=== PATIENT | female | born 1950 | race Caucasian/White ===

== ENCOUNTER → 2021-10-30 14:04 | Outpatient (CLI) | payer MEDICARE, OTHER, SELFPAY ==
--- NOTE | 2021-10-30 14:09 | DI.MG.S_ITS ---
BILATERAL DIGITAL SCREENING MAMMOGRAM 3D/2D WITH CAD: 10/30/2021 CLINICAL: Routine screening. Comparison is made to exams dated: 06/25/2020 mammogram, 06/30/2019 mammogram, and 05/02/2018 mammogram - outside location. There are scattered fibroglandular elements in both breasts. Current study was also evaluated with a Computer Aided Detection (CAD) system. There is a biopsy clip in the left breast. No significant masses, calcifications, or other findings are seen in either breast. There has been no significant interval change. IMPRESSION: NEGATIVE There is no mammographic evidence of malignancy. A 1 year screening mammogram is recommended. This exam was interpreted at Station ID: [id number]. NOTE: For mammograms, a report in lay terms will be sent to the patient. Approximately 15% of breast malignancies will not be visualized mammographically. In the management of a palpable breast mass, a negative mammogram must not discourage biopsy of a clinically suspicious lesion. Electronically Signed By: Aquilino saba/josefa:10/30/2021 16:06:34 letter sent: Normal Exam ACR BI-RADS Category 1: Negative [id number]
== END ==
PROVIDERS: Referring Provider Student in an Organized Health Care Education/Training Program; Visit Provider Student in an Organized Health Care Education/Training Program
DX: M85.851 Other specified disorders of bone density and structure, right thigh (principal); Z12.31 Encounter for screening mammogram for malignant neoplasm of breast; Z13.820 Encounter for screening for osteoporosis; Z78.0 Asymptomatic menopausal state
CPT/HCPCS: 77063; 77067; 77080; 77081

== ENCOUNTER → 2022-01-20 11:21 | Outpatient (CLI) | payer MEDICARE, OTHER, SELFPAY ==
--- NOTE | 2022-01-20 11:23 | DI.RAD.S_ITS ---
PROCEDURE: XR LUMBAR SPINE MIN 4V INDICATIONS: BACK PAIN.. TECHNIQUE: 5 views of the lumbar spine were acquired, including bilateral oblique views. COMPARISON: None. FINDINGS: Bones: Five nonrib-bearing vertebrae are present. Mild dextro rotoscoliosis of the lumbar spine with the apex at the L2 level. Grade 1 anterolisthesis L4 on five. Mild disc height loss L3-4 and L4-5. No vertebral body compression fractures. No suspicious bony lesions. Left hip arthroplasty component. Soft tissues: Overlying bowel gas pattern is normal. No suspicious soft tissue calcifications. Mild aortic atherosclerosis. Oblique images: Suboptimal given pre-existing rotoscoliosis. Prominent right L4-5 facet arthropathy. IMPRESSION: 1. Pre-existing mild rotational scoliosis of the lumbar spine. 2. L4-5 grade 1 anterolisthesis. Dictated by: Ce Márquez M.D. on 01/20/2022 at 14:47 Approved by: Ce Márquez M.D. on 01/20/2022 at 14:50
== END ==
PROVIDERS: PCP Student in an Organized Health Care Education/Training Program; Referring Provider Physical Medicine & Rehabilitation; Visit Provider Physical Medicine & Rehabilitation
DX: M43.16 Spondylolisthesis, lumbar region (principal); M41.86 Other forms of scoliosis, lumbar region; M54.9 Dorsalgia, unspecified
CPT/HCPCS: 72110

== ENCOUNTER → 2022-01-28 10:42 | Outpatient (CLI) | payer MEDICARE, OTHER, SELFPAY ==
[2022-01-28 14:16] LABS: COVID19 -Nasal RAPID Negative (Negative)
== END ==
PROVIDERS: PCP Student in an Organized Health Care Education/Training Program; Visit Provider Family Medicine Sleep Medicine
DX: Z20.822 Contact with and (suspected) exposure to COVID-19 (principal)
CPT/HCPCS: 87635; C9803

== ENCOUNTER 2022-01-30 13:52 | Day surgery (SDC) | payer MEDICARE, OTHER, SELFPAY ==
--- NOTE | 2022-01-30 | PATH_ITS ---
[facility] Accession Number: [id number] . 01 Material submitted: . PART A: sigmoid colon - SIGMOID COLON POLYP 4MM PART B: sigmoid colon - SIGMOID POLYP . 01 Clinical history: . B: LARGE SESSILE SIGMOID COLON POLYP, 2.5CM TARGET BIOPSY DONE . 02 Diagnosis: A. Sigmoid Colon Polyp 4 mm: Hyperplastic polyp. . B. Sigmoid Polyp: Multiple (approximately five) portions of tubular adenoma. MRV 02/05/2022 1107 Local . 02 Electronically signed: . Radha Butler MD, Pathologist NPI- [id number] . 01 Gross description: . Part A: SIGMOID COLON POLYP 4MM: Received in formalin is 1 fragment(s) of gardner, soft tissue measuring 0.3 x 0.2 x 0.2 cm submitted entirely in 1 cassette(s) Part B: SIGMOID POLYP: Received in formalin are 4 fragment(s) of gardner, soft tissue measuring 0.2 x 0.2 x 0.2 cm to 0.3 x 0.3 x 0.2 cm submitted entirely in 1 cassette(s) /PRASAD 02/02/2022 1858 Local . 02 Pathologist provided ICD-10: Z12.11, K63.5 . 02 CPT . 431648, 571754 Specimen Comment: A courtesy copy of this report has been sent to [phone] Performed at: 01 [facility] [address] [facility], [place], [place] [id number] MD David Dominguez MD Phone: [phone] Performed at: [address] [facility] [address] , [place], [place] [id number] MD Bettina Gee MD Phone: [phone]
--- NOTE | 2022-01-30 12:39 | P.HP_ITS ---
History of Present Illness History of Present Illness Date Patient Seen: 01/30/22 Chief complaint: SDC Narrative: 71 year old female comes in today for consideration of a screening colonoscopy. Last colonoscopy in 2017, 2 tubular adenomas, recall 5 years. There have been no lower GI symptoms suggesting disease such as change in bowel habits, bleeding, abdominal pain or anemia. She does have a family history of colon cancer. Overall health issues have been stable, including no major cardiac events for at least 6 weeks. PCP: Dr. 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 Met in the 7th grade, x 50 years. from cancer 3 years ago. Was having trouble maintaining their property with acreage in [place] so sold house and moved into an apartment and reflected on what she wanted to do with her life and what really makes her happy. Decied to move to [place], now living in [id number] apartment near her daughter. Tries to look at things on positive side. Interested in doing some volunteer work in [employer] and joining a gym. Believes in giving things to others, paying it forward. Enjoys: reading history, walking, swimming. Joined a group of 50+ women in [employer] called [employer]. Patient History Medical History Hypercholesteremia IBS (irritable bowel syndrome) Lumbar radiculopathy Osteoporosis Surgical History H/O breast surgery History of eye surgery History of foot surgery History of hip surgery History of total left hip arthroplasty Family & Social History Family History Father Depression Alcoholic Mother Diabetes mellitus Hypertension Heart attack Brother Cancer Sister Rheumatoid arteritis Fall Meds Home Medications and Allergies Home Medications Medication Instructions Recorded Confirmed Type alendronate 70 mg tablet 70 mg PO WEEKLY 01/26/22 01/30/22 History cholecalciferol (vitamin D3) 125 125 mcg PO DAILY 01/26/22 01/30/22 History mcg (5,000 unit) capsule colestipol 1 gram tablet (Colestid) 1 g PO BID 01/26/22 01/30/22 History hydroxyzine HCl 10 mg tablet 10 mg PO DAILY tab 01/26/22 01/30/22 History latanoprost 0.005 % eye drops 1 drp EYE-BOTH DAILY ml 01/26/22 01/30/22 History lovastatin 40 mg tablet 40 mg PO BEDTIME tab 01/26/22 01/30/22 History naproxen 500 mg tablet 500 mg PO BID PRN 01/26/22 01/30/22 History oxybutynin chloride 10 mg 10 mg PO DAILY 01/26/22 01/30/22 History tablet,extended release 24 hr Allergies Allergy/AdvReac Type Severity Reaction Status Date / Time oxycodone Allergy Intermediate Nausea Verified 01/30/22 14:21 Review of Systems Review of Systems Narrative: All remaining ROS were reviewed and negative except as addressed. Exam Narrative Exam Narrative: GENERAL: Alert and oriented, appearing stated age and in no acute distress. HEENT: Head normocephalic/atraumatic. Extraocular movements intact. LUNGS: Clear to ausculation bilaterally, no wheezes, rhonchi or rales. CV: Normal S1 and S2 with regular rate and rhythm, no audible murmurs, rubs or gallops. ABDOMEN: Soft, non-tender, non-distended, no organomegaly. Positive bowel sounds. EXTREMITIES: No clubbing, cyanosis, or edema. NEURO: Cranial nerves II through XII grossly intact, no focal deficits. PSYCH: Alert and oriented x 3. SKIN: No concerning lesions. Assessment & Plan Assessment & Plan narrative: 1. History of colon polyps 2. Family history of colon cancer 3. Screening for colon cancer Plan for colonoscopy. The nature and character of the procedure as well as anticipated results were discussed. The possibility of not completing the procedure was also discussed. Possible complications including aspiration pneumonia, bleeding, perforation and reaction to medications either for sedation or preparation and missed lesions were discussed. Questions were answered and proceeding to the colonoscopy was elected. Informed consent signed. I sincerely appreciate the referral allowing me to participate in this patient's care. Please contact me with any questions or concerns.
--- NOTE | 2022-01-30 12:43 | P.OP.COLON_ITS ---
Operative Date/Time/Diagnoses Date of procedure: 01/30/22 Procedure Notes SCOAP/Timeout: 1:24 p.m. Procedure in detail: ENDOSCOPIST: Anabelle Campoverde MD Sedation RN: Rose Marie Huston RN Sedation start time: 3:25 p.m. Sedation end time: 3:50 p.m. PROCEDURE: Colonoscopy with cold biopsy INDICATIONS: 1. History of colon polyps 2. Screening for cancer MEDICATION: Levsin 0.125 mg sublingual, incremental doses of Versed and fentanyl until appropriate level sedation achieved. ASA CLASS: 2 CECAL WITHDRAWAL TIME: 21 minutes COMPLICATIONS: None. EXTENT OF PROCEDURE: Cecum. QUALITY OF PREP: Good with portions of liquid stool. PROCEDURE: Prior to insertion of the colonoscope, a digital rectal examination was accomplished with circumferential palpation of the distal rectal mucosa without significant findings being noted. The high-definition colonoscope was passed into the rectum in the usual fashion and advanced over to the cecum without difficulty. The ileocecal valve, appendiceal stoma, and medial wall all could be inspected and no abnormalities were seen. ASCENDING COLON: As the colonoscope was withdrawn, care was taken to expose and inspect the haustral folds and no abnormalities were seen. HEPATIC FLEXURE: Normal, no polyps, diverticula or other abnormalities. TRANSVERSE COLON: Normal, no polyps, diverticula or other abnormalities. DESCENDING COLON: Minor diverticulosis, otherwise normal no polyps, or other a bnormalities. SIGMOID COLON: 2 polyps seen, the first was 4 mm and removed with cold biopsy, excellent hemostasis. The other was located distally, at approximately 10 cm, estimated size 2.5 cm, sessile. Polyp was lifted with methylene blue and noted to be spreading, targeted biopsy taken x2. Otherwise, minor diverticulosis no other abnormalities. RECTUM: Normal. J maneuver was produced. There was no significant perianal disease. The J maneuver was broken. The remainder of the rectum was inspected and there was no external hemorrhoid disease. The scope was withdrawn. IMPRESSION: 1. Sigmoid polyp x1, 4 mm, removed with cold biopsy forceps 2. Sigmoid polyp x1, 2.5 cm, lifted with methylene blue, targeted biopsy taken x2, polyp left unresected secondary to size. 3. Left-sided diverticulosis, minor PLAN: 1. Follow-up in clinic status post pathology results. 2. Referral to GI for advanced EMR of large, sessile polyp. The possibility of a missed lesion including a malignancy has been discussed with the patient previously. Potential alarm symptoms have been discussed and should be reported immediately.
[2022-01-30 14:20] VITALS: BP 153/82; PULSE 75; RESP 16; TEMP 37.1; O2SAT 100
[2022-01-30] MEDS: LACTATED RINGERS 1,000 ML 200 ML IV (14:27)
[2022-01-30] MEDS: HYOSCYAMINE 0.125 MG TABLET PO (14:27)
[2022-01-30 14:29] VITALS: BMI 32.1
[2022-01-30] MEDS: METHYLENE BLUE 50 MG/10 ML VIAL INJ (15:48)
[2022-01-30] MEDS: fentaNYL 250 MCG/5 ML INJ 125 MCG IV (15:50)
[2022-01-30] MEDS: MIDAZOLAM 5 MG/5 ML VIAL 6 MG IV (15:50)
[2022-01-30 16:06] VITALS: BP 134/70; PULSE 74; RESP 20; TEMP 35.9; O2SAT 97
[2022-01-30 16:11] VITALS: BP 124/66; PULSE 60; RESP 14; RESP 17; TEMP 35.8; O2SAT 97; O2SAT 99
[2022-01-30 16:22] VITALS: BP 137/64; PULSE 63; RESP 13; TEMP 35.8; O2SAT 97
[2022-01-30 16:27] VITALS: BP 145/65; PULSE 55; RESP 14; TEMP 35.9
== END 2022-01-30 16:51 | disposition home or self-care (01) ==
PROVIDERS: PCP Student in an Organized Health Care Education/Training Program; Referring Provider Student in an Organized Health Care Education/Training Program; Visit Provider Student in an Organized Health Care Education/Training Program
PROC: 0DJD8ZZ Inspection of Lower Intestinal Tract, Via Natural or Artificial Opening Endoscopic (ICD-10-PCS; CPT 45378; principal; 2022-01-30 15:15)
DX: Z12.11 Encounter for screening for malignant neoplasm of colon (principal); Z86.010 Personal history of colon polyps; K57.30 Diverticulosis of large intestine without perforation or abscess without bleeding; D12.5 Benign neoplasm of sigmoid colon
CPT/HCPCS: 45380; 45381; J2250; J3010; Q9968

== ENCOUNTER → 2022-02-05 08:56 | Outpatient (CLI) | payer MEDICARE, OTHER, SELFPAY ==
--- NOTE | 2022-02-05 08:58 | DI.MRI.S_ITS ---
PROCEDURE: MR LUMBAR SPINE WO CON INDICATIONS: Lumbar radiculopathy TECHNIQUE: Noncontrast sagittal T1 spin echo and T2 fast echo, sagittal STIR, and T2 fast spin echo through the lumbar spine. Additional oblique axial T2 weighted images were obtained through the lower lumbar spine. In cases with scoliosis, additional coronal T2 fast spin echo may be performed. COMPARISON: [facility], CR, XR LUMBAR SPINE MIN 4V, 01/20/2022, 11:25. FINDINGS: Image quality: Excellent. Alignment and Curvature: Minimal anterolisthesis is seen at T12-L1. Mild grade 1 anterolisthesis is seen at the L4-L5 level. Bone Marrow: Marrow is of normal overall signal. No acute vertebral body compression fractures. Spinal Cord: Conus medullaris terminates at the L1 level. Visualized cord demonstrates normal signal and size. Paraspinous Soft Tissues: No paravertebral masses. T12-L1: The disc height is well-preserved. Loss of disc signal is seen at this level. There is a focal annular fissure seen posteriorly. Reactive marrow endplate changes are seen, which are hyperintense on T1-weighted and T2-weighted imaging and most consistent with fatty metaplasia (Modic type II changes). Mild generalized disc bulge is seen. L1-L2: The disc height is well-preserved. Loss of disc signal is seen at this level. There is a focal annular fissure seen posteriorly. No significant neural foraminal or central canal narrowing can be seen. L2-L3: The disc height is well-preserved. Loss of disc signal is seen at this level. Mild generalized disc bulge is seen. Mild facet joint hypertrophy is seen. Minimal bilateral neural foraminal narrowing can be seen. No central canal narrowing is seen. L3-L4: Mild loss of disc height is seen. Loss of disc signal is seen. Mild generalized disc bulge is seen. Mild to moderate facet hypertrophy is seen. There is at least moderate right-sided and minimal left-sided neural foraminal narrowing. No significant central canal narrowing is seen. L4-L5: Mild loss of disc height is seen. Loss of disc signal is seen. Mild to moderate disc bulge is seen. There is a mild central disc extrusion, with mild superior migration of the disc material, as on series 2, image 8. At least moderate facet hypertrophy is seen. There is at least moderate bilateral neural foraminal narrowing seen. Moderate central canal narrowing is seen. L5-S1: Mild loss of disc height is seen. Loss of disc signal is seen. Mild generalized disc bulge is seen. Mild facet joint hypertrophy is seen. No significant neural foraminal or central canal narrowing can be seen. IMPRESSION: Multiple levels of lumbar spine degenerative change are seen, which are overall worst at the L4-L5 level. Dictated by: Thom Mauro M.D. on 02/05/2022 at 9:27 Approved by: Thom Mauro M.D. on 02/05/2022 at 9:32
== END ==
PROVIDERS: PCP Student in an Organized Health Care Education/Training Program; Referring Provider Physical Medicine & Rehabilitation; Visit Provider Physical Medicine & Rehabilitation
DX: M47.26 Other spondylosis with radiculopathy, lumbar region; M47.27 Other spondylosis with radiculopathy, lumbosacral region
CPT/HCPCS: 72148

== ENCOUNTER → 2022-05-19 08:58 | Outpatient (CLI) | payer MEDICARE, OTHER, SELFPAY ==
[2022-05-19 10:21] LABS: COVID19 -Nasal RAPID Negative (Negative)
== END ==
PROVIDERS: PCP Student in an Organized Health Care Education/Training Program; Visit Provider Surgery
DX: Z20.822 Contact with and (suspected) exposure to COVID-19 (principal); Z01.812 Encounter for preprocedural laboratory examination
CPT/HCPCS: 87635; C9803

== ENCOUNTER 2022-05-20 14:55 | Day surgery (SDC) | payer MEDICARE, OTHER, SELFPAY ==
--- NOTE | 2022-05-20 14:54 | PM.PREOP ---
Pre-operative Note COVID-19 COVID-19 status: Negative Interval Note History & Physical reviewed/Exam performed by Physician: Yes Changes to H&P: No ASA Class (for procedural sedation): II
--- NOTE | 2022-05-20 14:55 | PM.OP.EGD ---
Operative Date/Time/Diagnoses Date of procedure: 05/20/22 Pre-op diagnosis: See indication and findings Procedure & Clinicians Study performed: EGD and dilation Indications: Dysphagia Surgeon: Sri Ovalle Procedure Notes Procedure in detail: After informed consent was obtained patient was placed in left lateral decubitus position. The video upper scope was placed into the oropharynx and with the patient's help swallowed into the esophagus. The esophagus stomach duodenum were carefully examined. On withdrawal, retroflexed view the GE junction was performed. The scope was removed. The patient tolerated procedure well. Blood loss none Complications none Sedation mac Findings 1. No evidence of a proximal or distal web or ring. If anything there were some tertiary contractions noted in the esophagus. GE junction was wide open. At the end of the procedure a guidewire was left in place and a 51 [place] Savary was passed. There were no complications 2. Normal stomach 3. Normal duodenal bulb and sweep We will see whether daily gets any relief from this procedure but I doubt she will have anything long lasting. If further workup is desired regarding the etiology of her dysphagia a esophageal manometry might be considered. She should follow up with Dr. Nolen when after having the colonoscopy later this month.
[2022-05-20 15:09] VITALS: BMI 31.8
[2022-05-20] MEDS: LACTATED RINGERS 1,000 ML 42 ML IV (15:14)
[2022-05-20 15:16] VITALS: BP 162/78; PULSE 72; RESP 12; TEMP 36.4; O2SAT 96
[2022-05-20 15:40] VITALS: BP 112/64; PULSE 69; RESP 20; TEMP 36; O2SAT 96
[2022-05-20 15:45] VITALS: BP 130/67; PULSE 56; RESP 15; O2SAT 95
[2022-05-20 15:50] VITALS: BP 122/64; PULSE 56; RESP 12; O2SAT 96
[2022-05-20 15:55] VITALS: BP 138/67; PULSE 51; RESP 14; O2SAT 95
[2022-05-20 15:57] VITALS: BP 133/69; PULSE 51; RESP 17; O2SAT 98
== END 2022-05-20 16:20 | disposition home or self-care (01) ==
PROVIDERS: PCP Student in an Organized Health Care Education/Training Program; Referring Provider Internal Medicine Gastroenterology; Visit Provider Internal Medicine Gastroenterology
PROC: 0DJ08ZZ Inspection of Upper Intestinal Tract, Via Natural or Artificial Opening Endoscopic (ICD-10-PCS; CPT 43235; principal; 2022-05-20 15:00)
DX: R13.10 Dysphagia, unspecified (principal)
CPT/HCPCS: 43248; J2704

== ENCOUNTER → 2022-06-19 09:06 | Outpatient (CLI) | payer MEDICARE, OTHER, SELFPAY ==
[2022-06-19 10:30] LABS: COVID19 -Nasal RAPID Negative (Negative)
== END ==
PROVIDERS: PCP Student in an Organized Health Care Education/Training Program; Visit Provider Surgery
DX: Z01.812 Encounter for preprocedural laboratory examination (principal); Z20.822 Contact with and (suspected) exposure to COVID-19
CPT/HCPCS: 87635; C9803

== ENCOUNTER 2022-06-22 10:32 | Day surgery (SDC) | payer MEDICARE, OTHER, SELFPAY ==
--- NOTE | 2022-06-22 | PATH_ITS ---
[facility] Accession Number: [id number] . 01 Material submitted: . colon - RECTAL-SIGMOID POLYP @10CM . 01 Clinical history: . [facility] PERSONAL HISTORY OF COLONIC POLYPS . 01 Diagnosis: Rectosigmoid Colon Polyp at 10 cm, Biopsy: Tubulovillous adenoma. Negative for high-grade dysplasia or malignancy. MRV 06/26/2022 1220 Local . 01 Electronically signed: . Jonas Linder MD, PhD, Pathologist NPI- [id number] . 01 Gross description: . RECTAL-SIGMOID POLYP @10CM: Received in formalin are 3 fragment(s) of gardner, soft tissue measuring 0.4 x 0.2 x 0.1 cm to 0.3 x 0.2 x 0.1 cm submitted entirely in 1 cassette(s) /CPE 06/23/2022 0848 Local . 01 Pathologist provided ICD-10: D12.7 . 01 CPT . 694596 Performed at: 01 [facility] [address] [place] [address], [place], [place] [id number] MD David Dominguez MD Phone: [phone]
[2022-06-22 12:45] VITALS: BP 142/69; PULSE 57; RESP 20; TEMP 36.2; O2SAT 97; BMI 32.1
[2022-06-22] MEDS: SODIUM CHLORIDE 0.9% 1,000 ML 100 ML IV (13:00)
--- NOTE | 2022-06-22 13:45 | PM.HP.1 ---
History of Present Illness History of Present Illness Date Patient Seen: 06/22/22 Time Patient Seen: 13:45 Chief complaint: SDC Narrative: I reviewed my office note from April 28. No changes. Patient History Medical History Facet arthropathy, lumbar Hypercholesteremia IBS (irritable bowel syndrome) Lumbar radiculopathy Osteoporosis Surgical History H/O breast surgery History of eye surgery History of foot surgery History of hip surgery History of total left hip arthroplasty Family & Social History Family History Father Depression Alcoholic Mother Diabetes mellitus Hypertension Heart attack Brother Cancer Sister Rheumatoid arteritis Fall Social History: household members none Tobacco & Substance use: Smoking Status Former smoker alcohol intake current alcohol intake frequency a few times a month Substance Use Type does not use Meds Home Medications and Allergies Home Medications Medication Instructions Recorded Confirmed Type alendronate 70 mg tablet 70 mg PO WEEKLY 01/26/22 06/22/22 History cholecalciferol (vitamin D3) 125 125 mcg PO DAILY 01/26/22 06/22/22 History mcg (5,000 unit) capsule colestipol 1 gram tablet (Colestid) 1 g PO BID 01/26/22 06/22/22 History hydroxyzine HCl 10 mg tablet 10 mg PO DAILY 01/26/22 06/22/22 History latanoprost 0.005 % eye drops 1 drp EYE-BOTH DAILY 01/26/22 06/13/22 History lovastatin 40 mg tablet 40 mg PO BEDTIME 01/26/22 06/22/22 History naproxen 500 mg tablet 500 mg PO BID PRN pain 01/26/22 06/22/22 History oxybutynin chloride 10 mg 10 mg PO DAILY 01/26/22 06/22/22 History tablet,extended release 24 hr Allergies Allergy/AdvReac Type Severity Reaction Status Date / Time oxycodone Allergy Intermediate Hallucinati Verified 06/13/22 12:29 ng Review of Systems Review of Systems ROS: Yes All systems reviewed with the patient and are negative except as otherwise documented Exam Vital Signs (past 8 hours): - 06/22/22 12:45 Temperature 97.2 F L Pulse Rate 57 L Respiratory Rate 20 Blood Pressure 142/69 H Pulse Oximetry 97 Oxygen Delivery Method Room Air Oxygen Delivery Method Room Air Const General: cooperative HENMT Head: normal to inspection Eyes General: appearance normal, both eyes and all related structures Neck Neck: normal visual inspection Chest Chest: normal inspection of the chest Resp Effort & Inspection: normal respiratory effort Cardio Rate: regular rate GI Inspection: normal to inspection Skin General: no rashes or lesions noted Neuro General: patient alert and patient awake Extrem General: normal to inspection and no pedal edema Psych Appearance: grossly normal Assessment & Plan Assessment & Plan narrative: 71-year-old female with a large adenomatous colon polyp. Repeat colonoscopy is pursued today. Time Spent With Patient Critical Care time: I spent a total of [] minutes of critical care time on this patient's care today; this time is exclusive of procedural time.
--- NOTE | 2022-06-22 15:22 | P.OP.COLON_ITS ---
Operative Date/Time/Diagnoses Date of procedure: 06/22/22 Time of procedure: 15:24 Pre-op diagnosis: Distal sigmoid polyp Post-op diagnosis: same Procedure & Clinicians Study performed: Colonoscopy with biopsy and Cristina ink submucosal injection Same procedure as scheduled: Yes Indications: Sigmoid tubular adenoma Surgeon: Rufino London Procedure Notes SCOAP/Timeout: Done Procedure in detail: After the risks and benefits were explained, written and verbal informed consent was obtained. The patient was brought into the procedure room and placed into the left lateral decubitus position. Please see nurse manager assessment notes for sedation details. Digital rectal examination was accomplished. The scope was introduced into the patient and advanced under direct visualization to approximately hepatic flexure. We discontinued efforts toward cecum in that this has already been accomplished recently and the patient was simply not tolerating the exam without considerable retching at that point. Any attempt at placing hands on the abdomen for pressure seemed to induce retching. The scope was slowly withdrawn to carefully examine the mucosa for any defects or lesions. Comprehensive imaging was accomplished throughout the rectum including the dentate line. The colon was decompressed, the scope was then removed from the patient who tolerated the procedure suboptimally Bowel prep adequate Pediatric colonoscope Scope withdrawal time: Not applicable Sedation minutes: 34 Complications: none Impression: Patient demonstrated suboptimal tolerance of the exam as described above. There was a large multilobulated polyp at approximately 10 cm from the anal verge. There were elements of this polyp that had sessile heaped up borders and irregular depressed features quite concerning for more advanced histology maybe even cancer at this point. There were other elements of the polyp that were more classically polypoid. I opened the 24 mm snare in the polyps suspect that the polyp was perhaps 2-1/2 cm in greatest dimension. Because of the morphology of this polyp I was quite concerned for some form of an invasive histology and elected only to pursue biopsies once again. We placed a small tattoo adjacent the lesion and photographed it once again to reveal where the tattoo is in re lation to the lesion. Endoscopic diagnosis Large irregular rectosigmoid junction polyp Post-procedure Plan for aftercare: 1. Await histopathology 2. Urgent EUS if histology continues to demonstrate benignity. I think this will be important to determine whether this polyp can indeed endoscopically be removed. 3. On the other hand if biopsies are concerning for advanced dysplasia carcinoma in Situ etc. then I think surgical consultation will be required. Disposition: PACU
[2022-06-22 15:27] VITALS: BP 118/73; PULSE 71; RESP 18; TEMP 36.3; O2SAT 97
[2022-06-22 15:32] VITALS: BP 116/73; PULSE 61; RESP 16; O2SAT 98
[2022-06-22 15:38] VITALS: BP 129/72; PULSE 61; RESP 18; O2SAT 97
--- NOTE | 2022-06-22 15:38 | SUR.PHASEI ---
Dr. Chung into see pt and talk to her regarding her polyp removal. Pt states she understands what he is telling her.
[2022-06-22 15:42] VITALS: BP 154/87; PULSE 59; RESP 16; TEMP 36.4; O2SAT 95
[2022-06-22 16:47] VITALS: BP 156/71; PULSE 56; RESP 16; TEMP 36.7; O2SAT 100
== END 2022-06-22 16:05 | disposition home or self-care (01) ==
PROVIDERS: PCP Student in an Organized Health Care Education/Training Program; Referring Provider Internal Medicine Gastroenterology; Visit Provider Internal Medicine Gastroenterology
PROC: 0DJD8ZZ Inspection of Lower Intestinal Tract, Via Natural or Artificial Opening Endoscopic (ICD-10-PCS; CPT 45378; principal; 2022-06-22 13:30)
DX: D12.7 Benign neoplasm of rectosigmoid junction (principal); Z86.010 Personal history of colon polyps
CPT/HCPCS: 45380; 45381; J2405; J2704

== ENCOUNTER → 2022-10-31 09:14 | Outpatient (CLI) | payer MEDICARE, OTHER, SELFPAY ==
--- NOTE | 2022-10-31 09:16 | DI.MG.S_ITS ---
BILATERAL DIGITAL SCREENING MAMMOGRAM 3D/2D WITH CAD: 10/31/2022 CLINICAL: Routine screening. Comparison is made to exams dated: 10/30/2021 mammogram - [facility], 06/25/2020 mammogram, and 06/30/2019 mammogram - outside location. There are scattered areas of fibroglandular density in both breasts (category b / 25%-50% glandular tissue). Current study was also evaluated with a Computer Aided Detection (CAD) system. There are benign calcifications in both breasts. There also is a biopsy clip in the left breast. No significant masses, calcifications, or other findings are seen in either breast. There has been no significant interval change. IMPRESSION: BENIGN There is no mammographic evidence of malignancy. A 1 year screening mammogram is recommended. Based on the Tyrer Cuzick model (a risk assessment model) the patient's lifetime risk is 2.7% and her 10 year risk is 2.4%. According to the ACR, ACS, and NCCN guidelines, an annual breast MRI exam along with mammogram is recommended if the patient's lifetime risk is 20% or greater. This exam was interpreted at Station ID: [id number]. NOTE: For mammograms, a report in lay terms will be sent to the patient. Approximately 15% of breast malignancies will not be visualized mammographically. In the management of a palpable breast mass, a negative mammogram must not discourage biopsy of a clinically suspicious lesion. Electronically Signed By: David montalvo/josefa:11/02/2022 02:07:49 letter sent: Normal Exam ACR BI-RADS Category 2: Benign Finding(s) 3342F
== END ==
PROVIDERS: PCP Family Medicine; Referring Provider Family Medicine; Visit Provider Family Medicine
DX: Z12.31 Encounter for screening mammogram for malignant neoplasm of breast (principal)
CPT/HCPCS: 77063; 77067

== ENCOUNTER 2022-11-05 07:14 | Outpatient (CLI) | payer MEDICARE, OTHER, SELFPAY ==
[2022-11-05] VITALS (8 sets, daily range): BP systolic 108–171; BP diastolic 58–77; PULSE 67–80; RESP 17–20; TEMP 36.6; O2SAT 96–97
--- NOTE | 2022-11-05 07:17 | DI.RAD.S_ITS ---
PROCEDURE: PAIN L INTERLAMINAR/CAUDAL INJ INDICATIONS: SPONDYLOSIS COMPARISON: [facility], CR, XR LUMBAR SPINE MIN 4V, 01/20/2022, 11:25. [facility], MR, MR LUMBAR SPINE WO CON, 02/05/2022, 9:05. FINDINGS: Fluoroscopic spot filming was performed to verify placement of a spinal needle at the L4-L5 level, as labeled on the films. Appropriate location of the needle tip was confirmed by injection of iodinated contrast. IMPRESSION: Intraprocedural examination within normal limits. Dictated by: Thom Mauro M.D. on 11/05/2022 at 11:10 Approved by: Thom Mauro M.D. on 11/05/2022 at 11:11
[2022-11-05] MEDS: MIDAZOLAM 2 MG/2 ML VIAL IV (08:30)
[2022-11-05] MEDS: BETAMETHASONE 30 MG/5 ML MDV 6 MG INJ (08:36)
[2022-11-05] MEDS: DEXAMETHASONE 10 MG/ML VIAL 20 MG INJ (08:37)
[2022-11-05] MEDS: IOPAMIDOL 15 ML VIAL 3 ML INJ (08:37)
[2022-11-05] MEDS: BUPIVACAINE 0.25% (PF) VIAL 2 ML INJ (08:38)
--- NOTE | 2022-11-05 08:44 | P.PCN_ITS ---
Date/Time/Diagnoses Date of procedure: 11/05/22 Time of procedure: 08:44 Pre-procedure diagnosis: 1. HNP WITH RADICULAR FEATURES, 2. MULTILEVEL CENTRAL STENOSIS, Post-procedure diagnosis: same Procedure Notes Procedure: 1. FLUOROSCOPICALLY GUIDED CONTRAST CONTROLLED INTERLAMINAR EPIDURAL STEROID INJECTION -L4/5 Indications: Ramesh is referred by Dr. Bear for treatment of Bilateral Foraminal Stenosis R>L LE symptoms. Physician: Tigre Walter Total Fluoroscopy time (seconds): 5 Total sedation minutes: 10 Complications: none Procedure in detail & Post-procedure care: FINDINGS Multilevel Central Spinal Stenosis with Nerve Root Compression DESCRIPTION OF PROCEDURE Fluoroscopically guided, contrast-controlled L4/5 translaminar epidural steroid injection. Following review of allergy and review of potential side effects and complications, including, but not necessarily limited to, infection, allergic reaction, local tissue breakdown, temporary as well as permanent nerve injury, paralysis, stroke and possible , the patient indicated that the patient understood and agreed to proceed. An informed consent document was signed by the patient, witnessed by a nurse, and placed in the patient's chart. Additionally, other treatment options including modalities, medications, and physical therapy were reviewed with the patient. After review of previous anaesthesic history and IV conscious sedation the patient was deemed safe to proceed with today?s procedure with IV conscious sedation as ASA class II designation. Safety time-out was performed to confirm patient ID, procedure to be performed and site of procedure. IV sedation was accomplished with a combination of 2mg of Versed was administered by the RN after DO order, titrated to patient comfort during the course of the procedure while the patient remained responsive to all verbal commands In the prone position, following sterile prep and drape of the lumbar region, the L4/5 translaminar space was identified fluoroscopically. The skin was anesthetized via a 25-gauge, 1.5inch needle with 1% lidocaine solution. At this point, a 22-gauge short bevel spinal needle was atraumatically introduced and a dvanced under fluoroscopic guidance into the region of the L4/5 translaminar space. Depth was confirmed on lateral view. Radiological data, including multiple fluoroscopic views of the lumbar spine, reveal a spinal needle at the L4/5 translaminar space. Lateral views then show placement of the needle in the epidural space. Subsequent views show contrast material flowing superiorly and inferiorly in the epidural space. No vascular or intrathecal uptake is observed. At this point, using loss of resistance technique with saline and air, the epidural space was entered. This was confirmed following negative aspiration with injection of approximately 1.5cc of Isovue 200, showing excellent epidural flow without vascular or intrathecal uptake. At this point, 1cc of 1% lidocaine solution combined with 3cc or 20mg of dexamethasone and 6mg betamethasone was injected without incident. The patient tolerated the procedure well without signs or symptoms of complications prior to transfer to the recovery area continued monitoring without incident. The patient was then transferred to the recovery area where they were observed for an appropriate period of time after the injection. The patient reported a VAS score of 6 prior to the procedure and a post- procedure VAS of 0. POST OP INSTRUCTIONS The patient was provided a Pain Log to continue to record their response to the target-specific procedure prior to follow-up visit with their referring physician. Additionally, specific post-injection care instructions and a contact number to our office were provided if concerns arise regarding possible complications associated with the procedure are suspected.
--- NOTE | 2022-11-05 09:07 | PC.NURSE ---
Patient with c/o headache. She reports I think its an oncoming cold and that it was present prior to her injection. 01/[address] Walter at bedside, assisted to recline patient fully and then sit her up. She reports complete improvement in headache while laying flat with it returning upon sitting up. Ok to discharge home per Dr. Walter. He instructed the patient to monitor at home and that he will call her later today to check up on her. She verbalized understanding again reporting she thinks its related to her new runny nose symptoms this AM.
== END 2022-11-05 09:09 | disposition home or self-care (01) ==
LOC: RAD 07:15
PROVIDERS: PCP Family Medicine; Referring Provider Physical Medicine & Rehabilitation; Visit Provider Physical Medicine & Rehabilitation
DX: M51.16 Intervertebral disc disorders with radiculopathy, lumbar region (principal); M48.061 Spinal stenosis, lumbar region without neurogenic claudication
CPT/HCPCS: 62323; 99152; J0702; J1100; J2250; J3490

== ENCOUNTER 2022-11-30 06:45 | Day surgery (SDC) | payer MEDICARE, OTHER, SELFPAY ==
--- NOTE | 2022-11-30 | PATH_ITS ---
[facility] Accession Number: [id number] No. of containers..02 Tissue . 01 Material submitted: . PART A: colon - RECTAL/SIGMOID POLYPECTOMY SITE PART B: rectum - RECTAL POLYP . 01 Diagnosis: A. Rectal/Sigmoid, Polypectomy Site: Colonic mucosa with no diagnostic abnormality. Negative for active, chronic, and microscopic colitis. Negative for dysplasia and malignancy. . B. Rectum, Polyp, Biopsy: Tubular adenoma. . MRV 12/02/2022 1525 Local . 01 Electronically signed: . Bettina Gee MD, Pathologist NPI- [id number] . 01 Gross description: . Part A: RECTAL/SIGMOID POLYPECTOMY SITE: Received in formalin are 4 fragment(s) of gardner, soft tissue measuring 0.2 x 0.1 x 0.1 cm to 0.2 x 0.1 x 0.1 cm submitted entirely in 1 cassette(s) Part B: RECTAL POLYP: Received in formalin is 1 fragment(s) of gardner, soft tissue measuring 0.2 x 0.1 x 0.1 cm submitted entirely in 1 cassette(s) /CPE 12/01/2022 0916 Local . 01 Pathologist provided ICD-10: D12.8 . 01 CPT . 517974, 335857 Specimen Comment: A courtesy copy of this report has been sent to [phone] Performed at: 01 [facility] [address] [place] [address], [place], [place] [id number] MD David Dominguez MD Phone: [phone]
[2022-11-30 07:28] VITALS: BP 140/72; PULSE 54; RESP 16; TEMP 37.1; O2SAT 99; BMI 31.8
[2022-11-30] MEDS: LACTATED RINGERS 1,000 ML 42 ML IV (07:38)
--- NOTE | 2022-11-30 07:50 | PM.HP.1 ---
History of Present Illness History of Present Illness Date Patient Seen: 11/30/22 Time Patient Seen: 08:00 Chief complaint: SDC Narrative: History of a large rectal tubulovillous adenoma. Here for inspection of prior polypectomy site Patient History Medical History Facet arthropathy, lumbar Hypercholesteremia IBS (irritable bowel syndrome) Lumbar radiculopathy Osteoporosis Surgical History H/O breast surgery History of eye surgery History of foot surgery History of hip surgery History of total left hip arthroplasty Family & Social History Family History Father Depression Alcoholic Mother Diabetes mellitus Hypertension Heart attack Brother Cancer Sister Rheumatoid arteritis Fall Social History: household members family,none Tobacco & Substance use: Tobacco type cigarettes Smoking Status Former smoker alcohol intake current alcohol intake frequency a few times a month Substance Use Type does not use Meds Home Medications and Allergies Home Medications Medication Instructions Recorded Confirmed Type cholecalciferol (vitamin D3) 125 125 mcg PO DAILY 01/26/22 11/30/22 History mcg (5,000 unit) capsule colestipol 1 gram tablet (Colestid) 1 g PO BID 01/26/22 11/30/22 History hydroxyzine HCl 10 mg tablet 10 mg PO DAILY 01/26/22 11/30/22 History latanoprost 0.005 % eye drops 1 drp EYE-BOTH DAILY 01/26/22 11/30/22 History lovastatin 40 mg tablet 40 mg PO BEDTIME 01/26/22 11/30/22 History naproxen 500 mg tablet 500 mg PO BID PRN pain 01/26/22 11/30/22 History oxybutynin chloride 10 mg 10 mg PO DAILY 01/26/22 11/30/22 History tablet,extended release 24 hr estradiol 0.01% (0.1 mg/gram) 1 g vaginal 2XW 11/02/22 11/30/22 History vaginal cream Allergies Allergy/AdvReac Type Severity Reaction Status Date / Time oxycodone Allergy Intermediate Hallucinati Verified 11/30/22 07:23 ng Review of Systems Review of Systems ROS: Yes All systems reviewed with the patient and are negative except as otherwise documented Exam Vital Signs (past 8 hours): - 11/30/22 07:28 Temperature 98.7 F Pulse Rate 54 L Respiratory Rate 16 Blood Pressure 140/72 Pulse Oximetry 99 Oxygen Delivery Method Room Air Oxygen Delivery Method Room Air Const General: cooperative HENMT Head: normal to inspection Eyes General: appearance normal, both eyes and all related structures Neck Neck: normal visual inspection Chest Chest: normal inspection of the chest Resp Effort & Inspection: normal respiratory effort Cardio Rate: regular rate GI Inspection: normal to inspection Skin General: no rashes or lesions noted Neuro General: patient alert and patient awake Extrem General: normal to inspection and no pedal edema Psych Appearance: grossly normal Assessment & Plan Assessment & Plan narrative: 72-year-old female with a history of large tubulovillous adenoma. Flexible sigmoidoscopy for surveillance is pursued today. Time Spent With Patient Critical Care time: I spent a total of [] minutes of critical care time on this patient's care today; this time is exclusive of procedural time.
--- NOTE | 2022-11-30 08:01 | PM.PREOP ---
Pre-operative Note Interval Note History & Physical reviewed/Exam performed by Physician: Yes Changes to H&P: No ASA Class (for procedural sedation): II
--- NOTE | 2022-11-30 08:21 | PM.OP.COLON ---
Operative Date/Time/Diagnoses Date of procedure: 11/30/22 Time of procedure: 08:22 Pre-op diagnosis: Large rectosigmoid tubulovillous adenoma Post-op diagnosis: same Procedure & Clinicians Study performed: Flexible sigmoidoscopy with biopsies and cold forceps polypectomy Same procedure as scheduled: Yes Indications: Large tubulovillous rectosigmoid adenoma Surgeon: Rufino London Procedure Notes SCOAP/Timeout: Done Procedure in detail: After the risks and benefits were explained, written and verbal informed consent was obtained. The patient was brought into the procedure room and placed into the left lateral decubitus position. Please see anesthesia notes for sedation details. Digital rectal examination was accomplished. The scope was introduced into the patient and advanced under direct visualization to approximately 40 cm from the anal verge. The scope was slowly withdrawn to carefully examine the mucosa for any defects or lesions. Comprehensive imaging was accomplished throughout the rectum including the dentate line. The colon was decompressed, the scope was then removed from the patient who tolerated the procedure well. Bowel prep adequate Adult colonoscope Scope withdrawal time: Not applicable Sedation minutes: 13 Complications: none Impression: There was a diminutive polyp in the rectum in a separate location from the previously resected large tubulovillous adenoma. This tiny polyp was removed with cold forceps. The site of the prior polypectomy was clearly identified by a slightly stellate scar. I elected to biopsy a small polypoid element associated with the scar that I suspect is hyperplastic and some of the surrounding mucosa to exclude any adenomatous features. The previously placed tattoo could easily be identified adjacent to this polypectomy site. Endoscopic diagnosis 1. Confirmation of prior complete polypectomy-status post biopsies 2. Diminutive rectal polyp Post-procedure Plan for aftercare: 1. Await histopathology. 2. If there are no concerning features identified at the polypectomy site biopsies, repeat colonoscopy will be suggested for 3 years. Disposition: PACU
[2022-11-30 08:23] VITALS: BP 118/57; PULSE 53; RESP 15; TEMP 36.7; O2SAT 94
[2022-11-30 08:28] VITALS: BP 127/62; PULSE 52; RESP 16; O2SAT 99
[2022-11-30 08:33] VITALS: BP 137/59; PULSE 50; RESP 16; TEMP 36.9; O2SAT 99
[2022-11-30 08:40] VITALS: BP 133/58; PULSE 50; RESP 16; TEMP 36.9; O2SAT 99
== END 2022-11-30 08:50 | disposition home or self-care (01) ==
PROVIDERS: PCP Family Medicine; Referring Provider Internal Medicine Gastroenterology; Visit Provider Internal Medicine Gastroenterology
PROC: 0DJD8ZZ Inspection of Lower Intestinal Tract, Via Natural or Artificial Opening Endoscopic (ICD-10-PCS; CPT 45378; principal; 2022-11-30 08:00)
DX: D12.7 Benign neoplasm of rectosigmoid junction (principal); Z09 Encounter for follow-up examination after completed treatment for conditions other than malignant neoplasm; D12.8 Benign neoplasm of rectum
CPT/HCPCS: 45331; J2704; J3010

== ENCOUNTER → 2023-08-10 08:08 | Outpatient (CLI) | payer MEDICARE, OTHER, SELFPAY | PROVIDERS: PCP Family Medicine; Referring Provider Podiatrist; Visit Provider Podiatrist | DX: Z01.818 Encounter for other preprocedural examination (principal) | CPT/HCPCS: 93005 ==

== ENCOUNTER → 2023-11-04 | Outpatient (CLI) | payer MEDICARE, OTHER, SELFPAY ==
--- NOTE | 2023-11-04 | DI.RAD.S_ITS ---
Bone Density Report Name: ARIA ELIZONDO Age: 73 Sex: Female Ethnicity: White Date of : 1950 Indication: osteopenia; prior fracture; Referring Provider: CECILIO UMANA Study: Bone densitometry was performed. Exam Date: November 04, 2023 Accession number: [id number] Bone Density: Region BMD T-score Z-score Classification AP Spine(L1-L4) 0.899 -1.3 1.1 Osteopenia Femoral Neck (Left) 2.151 11.7 13.8 Normal Total Hip (Left) 3.111 17.8 19.6 Normal Femoral Neck (Right) 0.611 -2.1 -0.1 Osteopenia Total Hip (Right) 0.754 -1.5 0.3 Osteopenia Total Hip Mean 1.933 8.2 10.0 Normal Total Forearm (Left) 0.471 -2.0 0.5 Osteopenia 1/3 Forearm (Left) 0.549 -2.4 0.2 Osteopenia UD Forearm (Left) 0.378 -1.1 0.7 Osteopenia World Health Organization criteria for BMD impression classify patients as: Normal (T-score at or above -1.0), Osteopenia (T-score between -1.0 and -2.5), or Osteoporosis (T-score at or below -2.5). 10-year Fracture Risk: FRAX not reported because: Prior hip or vertebral fracture Previous Exams: -- Region Exam Age BMD T-score BMD Change BMD Change Date g/cm2 vs Baseline vs Previous -- AP Spine (L1-L4) 11/04/2023 73 0.899 -1.3 -0.047 (-5.0%)# -0.047 (-5.0%)# 10/30/2021 71 0.946 -0.9 Total Hip(Right) 11/04/2023 73 0.754 -1.5 -0.003 (-0.4%)# -0.003 (-0.4%)# 10/30/2021 71 0.758 -1.5 -- *Denotes significance at 95% confidence level, LSC for AP Spine = 0.022 g/cm2, LSC for Total Hip = 0.027 g/cm2 # Denotes dissimilar scan types or analysis methods Impression: The patient has low bone mass, based on the Right Femoral Neck T-score. The patient has risk factors, including: previous fracture. No significant bone loss was observed. Discussion: INCREASED RISK OF FRACTURE DUE TO HISTORY OF FRACTURE. The patient's previous fracture puts the patient at high risk of a future fracture. In untreated patients, the risk of osteoporotic fracture increases approximately two-fold for each 1.0 SD decrease in T-score. Low bone density is not the only risk factor for fracture; also consider factors such as patient's age, frailty or poor health, risk of falling, risk of injury, previous osteoporotic fracture, family history of osteoporosis, cigarette smoking, low body weight, etc. Not everyone with a low trauma fracture has osteoporosis; osteomalacia and other metabolic bone disorders should also be considered. Patients who have osteoporosis should be evaluated for specific diseases and conditions (secondary causes) that may cause or contribute to bone loss and fracture risk. National Osteoporosis Foundation (NOF) recommends pharmacologic intervention for patients with a prior hip or vertebral fracture regardless of BMD T-score. The patient should follow a healthful lifestyle (good nutrition with adequate calcium and vitamin D, and appropriate weight-bearing exercise). Follow-Up: Consider a repeat BMD and Vertebral Fracture Assessment (VFA) exam in 2 years or sooner if medically necessary, to reassess this patient's status. Reported by: NAMAN MAX M.D. on 11/04/2023 12:25:00 PM.
== END ==
LOC: RAD 11:43
PROVIDERS: PCP Family Medicine; Referring Provider Family Medicine; Visit Provider Family Medicine
DX: M85.89 Other specified disorders of bone density and structure, multiple sites (principal)
CPT/HCPCS: 77080; 77081

== ENCOUNTER → 2023-11-11 16:18 | Outpatient (CLI) | payer MEDICARE, OTHER, SELFPAY ==
--- NOTE | 2023-11-11 | DI.MG.S_ITS ---
BILATERAL DIGITAL SCREENING MAMMOGRAM 3D/2D WITH CAD: 11/11/2023 CLINICAL: Routine screening. Comparison is made to exams dated: 10/31/2022 mammogram, 10/30/2021 mammogram - [facility], and 06/25/2020 mammogram - outside location. There are scattered areas of fibroglandular density in both breasts (category b / 25%-50% glandular tissue). Current study was also evaluated with a Computer Aided Detection (CAD) system. There is possible architectural distortion in the right breast at 12 o'clock anterior depth. No other significant masses, calcifications, or other findings are seen in either breast. IMPRESSION: INCOMPLETE: NEEDS ADDITIONAL IMAGING EVALUATION The possible architectural distortion in the right breast is indeterminate. Additional views with possible ultrasound are recommended. Based on the Tyrer Cuzick model (a risk assessment model) the patient's lifetime risk is 2.5% and her 10 year risk is 2.5%. According to the ACR, ACS, and NCCN guidelines, an annual breast MRI exam along with mammogram is recommended if the patient's lifetime risk is 20% or greater. This exam was interpreted at Station ID: [id number]. NOTE: For mammograms, a report in lay terms will be sent to the patient. Approximately 15% of breast malignancies will not be visualized mammographically. In the management of a palpable breast mass, a negative mammogram must not discourage biopsy of a clinically suspicious lesion. Electronically Signed By: Mark Guerrier M.D. lc/:11/12/2023 16:10:15 letter sent: Additional Imaging Needed ACR BI-RADS Category 0: Incomplete [id number]
== END ==
LOC: MAMMO 16:18
PROVIDERS: PCP Family Medicine; Referring Provider Family Medicine; Visit Provider Family Medicine
DX: Z12.31 Encounter for screening mammogram for malignant neoplasm of breast (principal); R92.323 Mammographic fibroglandular density, bilateral breasts
CPT/HCPCS: 77063; 77067

== ENCOUNTER → 2023-12-06 08:25 | Outpatient (CLI) | payer MEDICARE, OTHER, SELFPAY ==
--- NOTE | 2023-12-06 08:27 | DI.MG.S_ITS ---
UNILATERAL RIGHT DIGITAL DIAGNOSTIC MAMMOGRAM 3D/2D WITH ADDITIONAL VIEWS: 12/06/2023 CLINICAL: Additional evaluation requested from prior study. Comparison is made to exams dated: 11/11/2023 mammogram, 10/31/2022 mammogram, and 10/30/2021 mammogram - [facility]. There are scattered areas of fibroglandular density in the right breast (category b / 25%-50% glandular tissue). The possible architectural distortion in the right breast at 12 o'clock anterior depth is not seen in additional views. No other significant masses or calcifications are seen in the breast. IMPRESSION: BENIGN The possible architectural distortion in the right breast seen on the screening mammogram likely respresents superimposed fibroglandular tissue and is benign. There is no mammographic evidence of malignancy. Return to annual mammogram screening schedule is recommended. Based on the Tyrer Cuzick model (a risk assessment model) the patient's lifetime risk is 2.5% and her 10 year risk is 2.5%. According to the ACR, ACS, and NCCN guidelines, an annual breast MRI exam along with mammogram is recommended if the patient's lifetime risk is 20% or greater. This exam was interpreted at Station ID: [id number]. NOTE: For mammograms, a report in lay terms will be sent to the patient. Approximately 15% of breast malignancies will not be visualized mammographically. In the management of a palpable breast mass, a negative mammogram must not discourage biopsy of a clinically suspicious lesion. Electronically Signed By: Cynthia manzo/:12/06/2023 09:15:55 letter sent: Normal Exam ACR BI-RADS Category 2: Benign Finding(s) 3342F
== END ==
PROVIDERS: PCP Family Medicine; Referring Provider Family Medicine; Visit Provider Family Medicine
DX: R92.8 Other abnormal and inconclusive findings on diagnostic imaging of breast (principal); R92.321 Mammographic fibroglandular density, right breast
CPT/HCPCS: 77065; G0279

== ENCOUNTER → 2023-12-11 08:41 | Outpatient (CLI) | payer MEDICARE, OTHER, SELFPAY ==
--- NOTE | 2023-12-11 | DI.MRI.S_ITS ---
PROCEDURE: MR FOOT RT WO/W CON INDICATIONS: RIGHT FOOT PAIN TECHNIQUE: Multiphasic, multisequence MRI of the forefoot was performed, before and after intravenous contrast administration. COMPARISON: None. 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 There are mild degenerative changes in the midfoot and 1st MTP. There is focal marrow edema seen at the 5th metatarsal head, with signal abnormality extending to the neck. On precontrast T1 weighted images, no confluent loss of fatty marrow signal is seen. Soft tissues: No drainable fluid collection. At the area of the palpable marker adjacent to the 5th metatarsal head, there is a moderate area of edema and enhancement. No significant bursal fluid. No high-grade plantar muscular edema or atrophy. On sagittal images, the plantar plate structures appear intact, aside from the 5th metatarsal. 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 Focal moderate soft tissue enhancement and edema, likely representing cellulitis and infection adjacent to the 5th metatarsal head. There is focal signal abnormality with edema and enhancement of the 5th metatarsal head and neck, representing reactive changes and possible early osteomyelitis, although there is no evidence of fatty marrow signal loss on precontrast adjacent T1 weighted images to signify devitalized/necrotic bone. Dictated by: Mark Guerrier M.D. on 12/13/2023 at 14:31 Approved by: Mark Guerrier M.D. on 12/13/2023 at 14:37
== END ==
LOC: MRI 08:42
PROVIDERS: PCP Family Medicine; Referring Provider Podiatrist; Visit Provider Podiatrist
DX: M79.671 Pain in right foot (principal); R60.0 Localized edema; Z89.421 Acquired absence of other right toe(s)
CPT/HCPCS: 73720; A9579

== ENCOUNTER 2023-12-31 13:35 | Day surgery (SDC) | payer MEDICARE, OTHER, SELFPAY ==
[2023-12-28 14:06] VITALS: BMI 33.8
--- NOTE | 2023-12-31 | PATH_ITS ---
[facility] Accession Number: [id number] No. of containers..01 Tissue . 01 Material submitted: . bone - FIFTH METATARSAL HEAD BONE . 01 Diagnosis: BONE, FIFTH METATARSAL HEAD, BIOPSY: Osteocartilaginous fragment of bone with degenerative and reactive changes. No evidence of osteomyelitis. [place] 01/03/2024 1541 Local . 01 Electronically signed: . Linda New MD, Pathologist NPI- [id number] . 01 Gross description: . Received in formalin, labeled with two identifiers and fifth metatarsal head bone, is a gardner, flat fragment of osseous tissue measuring 1.1 x 0.7 x 0.1 cm. The flattened edge is consistent with margin, is inked blue. Bisecting reveals a gardner hard surface that is relatively easy to section with a scalpel. The specimen is submitted entirely in cassette A1 following decalcification. ([id number]) /FRR 01/01/2024 1501 Local . 01 Pathologist provided ICD-10: M89.9, M21.621 . 01 CPT . 791511, [id number] Specimen Comment: A courtesy copy of this report has been sent to [phone] Performed at: 01 [facility] [address] [place] [address] [address] [facility], [place], [place] [id number] MD David Dominguez MD Phone: [phone]
[2023-12-31] MEDS: ACETAMINOPHEN 325 MG TABLET 975 MG PO (14:50)
[2023-12-31] MEDS: LACTATED RINGERS 1,000 ML 42 ML IV (14:51)
[2023-12-31] MEDS: FAMOTIDINE 20 MG/2 ML VIAL IV (14:51)
[2023-12-31 14:54] VITALS: BP 154/73; PULSE 58; RESP 16; TEMP 36.6; O2SAT 99; BMI 33.8
--- NOTE | 2023-12-31 15:23 | P.OP_ITS ---
Operative Date/Time/Diagnoses Date of procedure: 12/31/23 Time of procedure: 15:23 Pre-op diagnosis: Right fifth metatarsal pain, swelling, bunionette Post-op diagnosis: same Procedure & Clinicians Procedure: Right fifth metatarsal bunionectomy (lateral eminence resection) and bone biopsy Same procedure as scheduled: Yes Indications: 73 yo female with painful enlargement right fifth metatarsal head area. Conservative measures failed to alleviate the concern and she wished to have surgical intervention at this time. We are also looking for possible infectious process in bone due to some signs seen postoperatively following her fifth toe elective amputation. We discussed the risks, potential complications, expected outcomes, consent was signed and there were no contraindications to the procedure at this time. Surgeon: Charis Correa Click Yes if Unassisted: Yes Anesthesia Type: General Operative Notes Closure Type: primary Specimen(s): other (Right fifth metatarsal head bone specimen sent to pathology for identification and microbiology for culture.) Estimated Blood Loss (mL): 20 Blood products transfused: none Tourniquet time (min): 19 Procedure in detail: The patient was brought to the operating room and placed on the operating table in the supine position. The tourniquet was placed about the right ankle. Well padded, appropriately aligned. After induction of general anesthesia the foot and ankle were prepped and draped in the usual aseptic manner. The tourniquet was inflated. Next, an incision was made over the 5th metatarsal head joint. The incision was deepened through subcutaneous tissues being careful to identify and retract all vital neural and vascular structures. All bleeders were cauterized and ligated as necessary. The 5th metatarsal phalangeal capsule was incised and this exposed the underlying enlarged 5th metatarsal lateral em inence. The lateral eminence soft tissue was very thick including bursa and thickened scarred capsule laterally. A saw was used to reduce the enlarged lateral eminence and the rasp was used to gently smooth the edges of the resection. The lateral eminence was passed from the field and specimen split between microbiology and pathology to send for identification and gram stain/culture. The bone was a little soft but remaining metatarsal was strong, no purulence or cystic changes into the bone or abscess or necrotic tissue. The area was irrigated with copious amounts of normal sterile saline. After thinning down some of the thickened bursal and capsule, capsule and deep closure was performed using 3-0 Vicryl. The tourniquet was deflated. A prompt hyperemic response was seen to the foot. Subcutaneous closure was performed using Vicryl and then nylon to the skin. A sterile lightly compressive dressing was placed on the foot. Pateint was then placed in a postoperative boot and transferred to PACU with vital signs stable and vascular status intact to the foot. Complications: none Post-operative Condition: stable Disposition: PACU Plan for aftercare: Following a period of postoperative monitoring, the patient will be discharged to home on written and oral postoperative instructions including keeping the dressing dry and intact, no greater than 50% weight to the surgical foot, icing and elevating the foot when seated home. DVT prevention techniques have been reviewed. For the 1st postoperative visit the dressing will be changed and close to the 3rd postoperative week we will likely remove the sutures.
--- NOTE | 2023-12-31 15:23 | PM.PREOP ---
Pre-operative Note Interval Note History & Physical reviewed/Exam performed by Physician: Yes Changes to H&P: No
--- NOTE | 2023-12-31 15:47 | SUR.OPER ---
Supine on padded OR bed, head on pillow, arms secured on padded arm boards at <90 degrees abduction, legs uncrossed, safety belt at thigh, tape over blanket over lower LEFT LEG. RIGHT LEG HELD ON FIELD.
[2023-12-31] MEDS: CEFAZOLIN 2 GM/100 ML PREMIX 100 ML IV (15:55)
[2023-12-31] MEDS: BUPIVACAINE 0.5% (PF) 30 ML VIAL INJ (16:08)
[2023-12-31 16:37] VITALS: BP 150/54; PULSE 54; RESP 14; TEMP 36.5; O2SAT 98
[2023-12-31 16:42] VITALS: BP 156/63; PULSE 52; RESP 12; O2SAT 98
[2023-12-31 16:47] VITALS: BP 149/64; PULSE 54; RESP 14; O2SAT 96
[2023-12-31 16:52] VITALS: BP 151/58; PULSE 50; RESP 16; O2SAT 96
[2023-12-31 16:57] VITALS: BP 156/61; PULSE 52; RESP 16; TEMP 36.5; O2SAT 96
== END 2023-12-31 17:13 | disposition home or self-care (01) ==
PROVIDERS: PCP Family Medicine; Referring Provider Podiatrist; Visit Provider Podiatrist
PROC: (CPT 28110; principal; 2023-12-31 15:30)
DX: M21.621 Bunionette of right foot (principal); L03.115 Cellulitis of right lower limb; M89.9 Disorder of bone, unspecified
CPT/HCPCS: 28110; 87070; 87075; 87205; J0690; J1100; J2405; J2704; J3010

== ENCOUNTER → 2024-11-13 08:04 | Outpatient (CLI) | payer MEDICARE, OTHER, SELFPAY ==
--- NOTE | 2024-11-13 08:06 | DI.MG.S_ITS ---
BILATERAL DIGITAL SCREENING MAMMOGRAM 3D/2D WITH CAD: 11/13/2024 CLINICAL: Routine screening. Comparison is made to exams dated: 11/11/2023 mammogram, 10/31/2022 mammogram, and 10/30/2021 mammogram - [facility]. There are scattered areas of fibroglandular density (category b / 25%-50% glandular tissue). Current study was also evaluated with a Computer Aided Detection (CAD) system. No significant masses, calcifications, or other findings are seen in either breast. There has been no significant interval change. IMPRESSION: NEGATIVE There is no mammographic evidence of malignancy. A 1 year screening mammogram is recommended. Based on the Tyrer Cuzick model (a risk assessment model) the patient's lifetime risk is 2.6% and her 10 year risk is 0.0%. According to the ACR, ACS, and NCCN guidelines, an annual breast MRI exam along with mammogram is recommended if the patient's lifetime risk is 20% or greater. This exam was interpreted at Station ID: [id number]. NOTE: For mammograms, a report in lay terms will be sent to the patient. Approximately 15% of breast malignancies will not be visualized mammographically. In the management of a palpable breast mass, a negative mammogram must not discourage biopsy of a clinically suspicious lesion. Electronically Signed By: Lorne [email or web address]:11/13/2024 16:31:55 letter sent: Normal Exam ACR BI-RADS Category 1: Negative
== END ==
PROVIDERS: PCP Family Medicine; Referring Provider Family Medicine; Visit Provider Family Medicine
DX: Z12.31 Encounter for screening mammogram for malignant neoplasm of breast (principal)
CPT/HCPCS: 77063; 77067

== ENCOUNTER → 2025-09-01 09:27 | Outpatient (CLI) | payer MEDICARE, OTHER, SELFPAY ==
--- NOTE | 2025-09-01 09:28 | DI.RAD.S_ITS ---
PROCEDURE: XR KNEE RT 3V INDICATIONS: Posterior right knee pain and swelling TECHNIQUE: 3 views of the knee were acquired. COMPARISON: None. FINDINGS: Bones: No fractures or dislocations. No suspicious bony lesions. Soft tissues: Trace joint effusion. No suspicious soft tissue calcifications. IMPRESSION: Trace knee joint effusion without acute osseous abnormality. Dictated by: Lei Francois M.D. on 09/01/2025 at 10:38 Approved by: Lei Francois M.D. on 09/01/2025 at 10:39
== END ==
PROVIDERS: PCP Family Medicine; Referring Provider Chiropractor; Visit Provider Chiropractor
DX: M25.561 Pain in right knee (principal); M25.461 Effusion, right knee
CPT/HCPCS: 73562

== ENCOUNTER → 2025-09-05 06:50 | Outpatient (CLI) | payer MEDICARE, OTHER, SELFPAY ==
--- NOTE | 2025-09-05 06:52 | DI.US.S_ITS ---
PROCEDURE: US PERIPH VENOUS LOW EXTREM RT INDICATIONS: RIGHT KNEE PAIN X 1 WEEK TECHNIQUE: Real-time imaging, as well as color and pulse Doppler interrogation, were performed of the lower extremity deep veins from the inguinal ligament to the popliteal fossa, with documentation of the visualized calf veins. COMPARISON: None. FINDINGS: The common femoral, femoral, popliteal, and the visualized calf veins are normally compressible, and free of intraluminal thrombus. Color and pulse Doppler demonstrate normal phasic intraluminal flow. There is normal augmentation response to distal compression maneuver. IMPRESSION: No findings of lower extremity deep venous thrombosis. Dictated by: Jack Terrell M.D. on 09/05/2025 at 8:47 Approved by: Jack Terrell M.D. on 09/05/2025 at 8:58
== END ==
LOC: US 06:51
PROVIDERS: PCP Family Medicine; Referring Provider Family Medicine; Visit Provider Family Medicine
DX: M79.604 Pain in right leg (principal)
CPT/HCPCS: 93971